=== PATIENT | male | born 1970 | race Caucasian/White ===

== ENCOUNTER 2018-04-11 09:51 | Emergency (ER) | payer MEDICAID ==
[2018-04-11 10:05] VITALS: BP 111/74
[2018-04-11] MEDS ORDERED: TDAP ADULT 0.5 ML INJ (BOOSTRIX) IM ONE (10:28)
--- NOTE | 2018-04-11 10:39 | EDPHY ---
H & P Stated Complaint: l 4th digit splinter Time Seen by Provider: 04/11/18 10:29 HPI/ROS: HPI: This is a 47-year-old male who presents with Chief Complaint: Left ring finger splinter Location: Left ring finger Quality: Splinter Duration: 1-2 hours prior to arrival Signs and Symptoms: No bleeding, no radiation, no numbness, no weakness, no tingling, no incontinence, no decreased range of motion, no swelling, + pain, no fever Timing: Acute Severity: Mild Context: Patient is right-hand dominant, presents with complaints of in his left ring finger splinter from a 2 x 4 as he was removing it from [employer] shelf 1-2 hours prior to arrival. Patient reports that a large piece of the splinter was sticking out and he bit it off. He can feel the tip of the wood underneath his skin. Complains of mild pain with flexion. Denies paresthesias , radiation, decreased range of motion. Unsure of tetanus status. Modifying Factors: None Comment: ROS: A comprehensive 10 system review of systems is otherwise negative aside from elements mentioned in the history of present illness. MEDICAL/SURGICAL/SOCIAL HISTORY: Medical history: Marquette Prieto syndrome Surgical history: Denies Social history: Never smoked. Employed. CONSTITUTIONAL: Polite and cooperative middle-aged white male, awake and alert , no obvious distress HEENT: Atraumatic and normocephalic. NECK: supple, no midline tenderness Cardiovascular: Normal S1/S2, regular rate, regular rhythm, without murmur rub or gallop. PULMONARY/CHEST: Symmetrical and nontender. Clear to auscultation bilaterally. Good air movement. No accessory muscle usage. ABDOMEN: Soft, nondistended, nontender. EXTREMITIES: 2/2 pulses, strength 5/5, left ring finger proximal to PIP joint shows pinpoint puncture site area and with deep palpation able to feel foreign body; no erythema/induration/warmth/discharge. Unable to visualize the foreign body. DIP/PIP/MCP flexion/extension intact with good light touch sensation. no deformities, no clubbing, no cyanosis or edema. NEUROLOGICAL: no focal neuro deficits. GCS 15. Light touch sensation intact. SKIN: Warm and dry, no erythema. no rash. Good capillary refill. Source: Patient Exam Limitations: No limitations - Personal History Current Tetanus Diphtheria and Acellular Pertussis (TDAP): Unsure - Medical/Surgical History Hx Asthma: No Hx Chronic Respiratory Disease: No Hx Diabetes: No Hx Cardiac Disease: No Hx Renal Disease: No Hx Cirrhosis: No Hx Alcoholism: No Hx HIV/AIDS: No Hx Splenectomy or Spleen Trauma: No Other PMH: micki durant - Social History Smoking Status: Never smoked Constitutional: Initial Vital Signs Temperature (C) 36.7 C 04/11/18 10:01 Heart Rate 64 04/11/18 10:01 Respiratory Rate 18 04/11/18 10:01 Blood Pressure 111/74 04/11/18 10:01 O2 Sat (%) 98 04/11/18 10:01 O2 Delivery Mode Room Air Allergies/Adverse Reactions: No Known Allergies Allergy (Unverified 04/11/18 10:00) Home Medications: Medication Instructions Recorded Cephalexin [Keflex (*)] 500 mg PO TID #21 cap 04/11/18 Gabapentin 04/11/18 Medical Decision Making Procedures: Procedure: Splint placement. A right ring finger splint was applied. After application of the splint I returned and re-examined the patient. The splint was adequately immobilizing the joint and distal to the splint the patient's circulation and sensation was intact. ED Course/Re-evaluation: Vital signs reviewed and stable upon arrival. Tetanus booster given. Digital block performed and inability to remove splinter. Copiously irrigated; Xeroform and finger splint placed for immobilization. Given prescription for Keflex for antibiotic prophylaxis. Patient is to return in 48 hr for wound check. No signs of neurovascular compromise/tenting of skin/compartment syndrome/ extremities and joints examined above and below area of concern and are neurovascularly intact. This patient was seen under the supervision of my secondary supervising physician. I evaluated care for this patient independently. Discussed this patient with Dr. Cullen. Differential Diagnosis: Differential diagnosis includes foreign body, cellulitis, abscess, tenosynovitis. Departure - Departure Disposition: Home, Routine, Self-Care Clinical Impression: Splinter of finger without major open wound or infection Qualifiers: Encounter type: initial encounter Qualified Code(s): S60.459A - Superficial foreign body of unspecified finger, initial encounter Condition: Good Instructions: Puncture Wound (ED) Additional Instructions: Keep the dressing/splint dry and in place for 48 hours. After 48 hours, into the emergency room for wound check. Take Tylenol 650 mg every 4 hours and/or Ibuprofen 600 mg every 8 hours with food as needed for pain. Take antibiotic as directed. Do not skip a dose. Wound Care Follow-Up: Wound evaluation and dressing change in [ 2 ] days. There is a charge for this evaluation in the Emergency Department. Referrals: Morgan Tan MD [Primary Care Provider] - As per Instructions Prescriptions: Cephalexin [Keflex (*)] 500 mg PO TID #21 cap
== END 2018-04-11 11:16 | disposition home or self-care (01) ==
DX: S60.455A Superficial foreign body of left ring finger, initial encounter (principal); Z23 Encounter for immunization

== ENCOUNTER 2018-04-13 09:09 | Emergency (ER) | payer MEDICAID ==
--- NOTE | 2018-04-13 09:47 | EDPHY ---
HPI/HX/ROS/PE/MDM Narrative: CHIEF COMPLAINT: Left ring finger splinter follow up HPI: The patient is a 47 y/o male returning to the ED for reevaluation of a splinter in his left ring finger. Two days ago he got a wood splinter that went all the way through his left ring finger leaving protrusions from both sides. He tried to bite the splinter to remove it, but instead broke off both ends and continue to feel like a piece of the splinter was in his finger. He came to the ED at that time and they were unsuccessful in removing anything. He was advised to return for reassessment. He is on antibiotics and received a tetanus vaccination during his prior visit. He denies changes in pain, drainage from the wound, fever, or other worsening of condition. REVIEW OF SYSTEMS: A comprehensive 10 system review of systems is otherwise negative aside from elements mentioned in the history of present illness. PMH: Denies SOCIAL HISTORY: Lives in [place]. Employed as artist. PHYSICAL EXAM: General:Patient is alert, in no acute distress. Cardiovascular: Normal cap refill. Skin: Normal color. No rash. Warm and dry. Extremities: Normal appearance. Full range of motion. FB palpable in area of concern. Neuro: Oriented x3. Normal motor function. Normal sensory function. ED Course: Procedure: Splinter removal. The patient's abscess was located on the left ring finger. Risks, benefits, alternatives discussed with the patient and consent obtained. The area was prepped and draped in sterile fashion. The patient received local anesthesia with 1% lidocaine. The 1cm wooden splinter was removed successfully was incised with splinter forceps. The wound was dressed. The patient tolerated the procedure well. The procedure was performed by myself, Dr. Pérez. Patient will be discharged with standard care instructions and return precautions. Recommended continuing antibiotic course for 5 days total. General Time Seen by Provider: 04/13/18 09:23 Initial Vital Signs: Initial Vital Signs Temperature (C) 37.0 C 04/13/18 09:16 Heart Rate 86 04/13/18 09:16 Respiratory Rate 16 04/13/18 09:16 Blood Pressure 118/71 04/13/18 09:16 O2 Sat (%) 97 04/13/18 09:16 O2 Delivery Mode Room Air Allergies/Adverse Reactions: No Known Allergies Allergy (Unverified 04/13/18 09:19) Home Medications: Medication Instructions Recorded Cephalexin [Keflex (*)] 500 mg PO TID #21 cap 04/11/18 Gabapentin 04/11/18 Departure - Departure Disposition: Home, Routine, Self-Care Clinical Impression: Splinter Condition: Good Instructions: Soft Tissue Foreign Body (ED) Additional Instructions: 1. Continue antibiotics for 5 days total from start of prescription. 2. Keep site clean and dry. 3. Follow up with your primary care provider or return to the ED for signs of infection or other worsening of condition. Referrals: Morgan Tan MD [Primary Care Provider] - As per Instructions Report Scribed for: Darvin Pérez Report Scribed by: Debbie Luevano Date of Report: 04/13/18 Time of Report: 09:47 Physician Review and Approval Statement: Portions of this note were transcribed by an ED scribe. I personally performed the history, physical exam, and medical decision making; and confirm the accuracy of the information in the transcribed note.
[2018-04-13 10:27] VITALS: BP 121/74
== END 2018-04-13 10:27 | disposition home or self-care (01) ==
DX: S60.455A Superficial foreign body of left ring finger, initial encounter (principal); W45.8XXA Other foreign body or object entering through skin, initial encounter